=== PATIENT | male | born 1950 | race African-American/Black ===

== ENCOUNTER 2016-11-05 07:46 | Emergency (ER) | payer OTHER, MEDICAID ==
[2016-11-05 09:09] LABS: ABSOLUTE BASOPHILS # (AUTO) 0.1 10^3/uL (0.0-0.2); ABSOLUTE EOSINOPHILS # (AUTO) 0.1 10^3/uL (0.0-0.6); ABSOLUTE LYMPHOCYTES (AUTO) 2.1 10^3/uL (0.5-4.7); ABSOLUTE MONOCYTES (AUTO) 0.6 10^3/uL (0.1-1.4); ABSOLUTE NEUT (AUTO) 3.6 10^3/uL (1.7-8.2); EOSINOPHILS % (AUTO) 2.2 % (0-6); HEMATOCRIT 46.2 % (37.9-51.0); HEMOGLOBIN 15.6 g/dL (13.5-17.0); HGB HCT DIFFERENCE 0.6; LYMPHOCYTES % (AUTO) 32.5 % (13-45); MEAN CORPUSCULAR HGB CONC 33.8 g/dL (32.0-36.0); MEAN CORPUSCULAR VOLUME 98 fl (80-97); MONOCYTES % (AUTO) 8.8 % (3-13); RED BLOOD COUNT 4.74 10^6/uL (4.35-5.55); RED CELL DISTRIBUTION WIDTH 14.8 % (11.5-14.0); SEGMENTED NEUTROPHILS % (AUTO) 55.5 % (42-78); WHITE BLOOD COUNT 6.5 10^3/uL (4.0-10.5)
--- NOTE | 2016-11-05 09:24 | ER Document Report ---
ED Cardiac - General Mode of Arrival: Ambulatory Information source: Patient - HPI Patient complains to provider of: Chest pain. denies: Shortness of breath Chest pain location: Substernal Quality of pain: Dull, Pressure Chest pain precipitating factors: Physical Exertion - walking Cardiac risk factors: Hypertension Positive cardiac history: No Associated symptoms: Other - see notes above <HAL CADE - Last Filed: 11/05/16 10:54> <MASON HOLMAN - Last Filed: 11/05/16 13:57> - General Chief Complaint: Chest Pain Stated Complaint: CHEST PAIN Time Seen by Provider: 11/05/16 09:15 Notes: 65 year old male with history of hypertension and CVA (1 year ago) presents to the ED complaining of substernal chest pain which he describes as dull and pressure that started at 10:00 yesterday morning while outside walking. Patient reports that it was hot outside and he began to have hot flashes associated with the pain. The patient went home to rest, but the pain and hot flashes returned at 1600. The same episode occurred at 0200 and 0500 earlier this morning. Patient denies any shortness of breath, headache, blurry or double vision. Patient states that he feels normal now and denies any pain. Patient reports that he has not taken his hypertensive medications this morning. PCP: None (HAL CADE) - Related Data Allergies/Adverse Reactions: No Known Allergies Allergy (Unverified 12/11/13 14:55) Past Medical History - General Information source: Patient - Social History Smoking Status: Unknown if Ever Smoked Family History: Reviewed & Not Pertinent - Past Medical History Cardiac Medical History: Reports: Hx Hypertension Neurological Medical History: Reports: Hx Cerebrovascular Accident - 2016, Hx Seizures - pediatric Renal/ Medical History: Denies: Hx Peritoneal Dialysis Psychiatric Medical History: Denies: Hx Depression Surgical Hx: Negative - Immunizations Hx Diphtheria, Pertussis, Tetanus Vaccination: No <HAL CADE - Last Filed: 11/05/16 10:54> Review of Systems - Review of Systems Constitutional: See HPI, Other - 'hot flash' EENT: No symptoms reported. denies: Blurred vision, Double vision Cardiovascular: See HPI, Chest pain Respiratory: No symptoms reported. denies: Short of breath Gastrointestinal: No symptoms reported Genitourinary: No symptoms reported Male Genitourinary: No symptoms reported Musculoskeletal: No symptoms reported Skin: No symptoms reported Hematologic/Lymphatic: No symptoms reported Neurological/Psychological: No symptoms reported. denies: Headaches -: Yes All other systems reviewed and negative <CADEHAL - Last Filed: 11/05/16 10:54> Physical Exam - General General appearance: Alert In distress: None - HEENT Head: Normocephalic, Atraumatic Eyes: Normal Extraocular movements intact: Yes Pupils: PERRL - Respiratory Respiratory status: No respiratory distress Breath sounds: Normal - Cardiovascular Rhythm: Regular Heart sounds: Normal auscultation - Abdominal Inspection: Normal Distension: No distension Tenderness: Nontender - Back Back: Normal - Extremities General upper extremity: Normal inspection, Normal ROM General lower extremity: Normal inspection, Normal ROM - Neurological Neuro grossly intact: Yes Cognition: Normal Orientation: AAOx4 Mitali Coma Scale Eye Opening: Spontaneous [place] Coma Scale Verbal: Oriented [place] Coma Scale Motor: Obeys Commands Mitali Coma Scale Total: 15 Speech: Normal - Psychological Associated symptoms: Normal affect, Normal mood - Skin Skin Temperature: Warm Skin Moisture: Dry Skin Color: Normal <CADEHAL - Last Filed: 11/05/16 10:54> Course - Laboratory Result Diagrams: 11/05/16 08:50 11/05/16 08:50 <HAL CADE - Last Filed: 11/05/16 10:54> - Laboratory Result Diagrams: 11/05/16 08:50 11/05/16 08:50 <MASON HOLMAN - Last Filed: 11/05/16 13:57> - Re-evaluation Re-evalutation: 11/05/16 10:34 Patient with separate chest pain events. He describes it as substernal in nature with shortness of breath and exertion. He said they lasted 3-4 minutes and recurred again last evening. He said he got hot flashes felt short of breath again when I went to bed and woke up around 2 or 3:00 this morning with the same type of symptoms got hot flashes short of breath substernal pressure lasted a few minutes went to bed and came in for evaluation today. He denies any cardiac history no history of recent travel surgery immobilization DVT or pulmonary emboli no cough upper respiratory illness shortness of breath history DVT numbness tingling weakness or loss of bladder or bladder function. No fevers chills diarrhea abdominal pain. He denies ever having a heart attack or heart catheterization or stress test. On examination he is chest pain-free hemodynamically stable with a normal examination. EKG shows some nonspecific ST changes but no acute NH. Initial troponin is negative he is given aspirin cardiac enzymes are negative long discussion with the patient and and the daughter at the bedside and I think he needs to be admitted to the hospital despite trying to explain to him that I think he needs to be admitted to the hospital he understands the risks versus benefits that I discussed with him and despite that wants to sign out AGAINST MEDICAL ADVICE. He has a GCS of 15 is awake alert not under the influence of anything that alters his decision to make decisions. Also discussed with the who does not want him to leave. At this time he understands that leaving could lead to or permanent disability and signed the AGAINST MEDICAL ADVICE form. He is instructed to return at any given moment that he wants to return to be reevaluated and discuss other reasons for ED return sooner (MASON HOLMAN) - Vital Signs Vital signs: Temp Pulse Resp BP Pulse Ox 97.8 F 54 L 13 175/97 H 98 11/05/16 07:58 11/05/16 10:50 11/05/16 10:50 11/05/16 10:50 11/05/16 10:50 - Laboratory Laboratory results interpreted by me: 11/05/16 11/05/16 08:50 08:50 MCV 98 H RDW 14.8 H Chloride 110 H Discharge <HAL CADE - Last Filed: 11/05/16 10:54> <MASON HOLMAN - Last Filed: 11/05/16 13:57> - Discharge Clinical Impression: Left against medical advice Chest pain Qualifiers: Chest pain type: unspecified Qualified Code(s): R07.9 - Chest pain, unspecified Condition: Stable Disposition: HOME, SELF-CARE Instructions: Chest Pain of Unclear Cause ([facility]) Additional Instructions: chest pain signed out against medical advice You should call your physician immediately for an appointment or return to ed and allow us to admit you to the hospital. return if the pain radiates to the shoulder, jaw or arms; if you start to run a fever or develop a cough; or if you develop shortness of breath, or other new or alarming symptoms. Referrals: [facility] [Provider Group] (follow up today return to er sooner for increasing worsening or new symptoms) Scribe Attestation: 11/05/16 10:38 I personally performed the services described in the documentation reviewed the documentation recorded by my scribe in my presence and it accurately and completely records my words and actions (MASON HOLMAN) Scribe Documentation - Scribe Written by Scribe:: Gurpreet Velez, 11/05/2016 1101 acting as scribe for :: Andrea <HAL CADE - Last Filed: 11/05/16 10:54>
[2016-11-05 09:27] LABS: ANION GAP 9 (5-19); BLOOD UREA NITROGEN 16 mg/dL (7-20); CALCIUM 9.6 mg/dL (8.4-10.2); CARBON DIOXIDE 25 mmol/L (22-30); CHLORIDE 110 mmol/L (98-107); CREATININE RESULT 0.96 mg/dL (0.52-1.25); GLUCOSE 89 mg/dL (75-110); POTASSIUM 3.9 mmol/L (3.6-5.0); SODIUM 144.4 mmol/L (137-145)
--- NOTE | 2016-11-05 09:30 | RADIOLOGY REPORT (SQ) ---
EXAM DESCRIPTION: CHEST SINGLE VIEW COMPLETED DATE/TIME: 11/05/2016 9:10 am REASON FOR STUDY: chest pain COMPARISON: 12/11/2013 EXAM PARAMETERS: NUMBER OF VIEWS: One view. TECHNIQUE: Single frontal radiographic view of the chest acquired. RADIATION DOSE: NA LIMITATIONS: None. FINDINGS: LUNGS AND PLEURA: No opacities, masses or pneumothorax. No pleural effusion. MEDIASTINUM AND HILAR STRUCTURES: No masses. Contour normal. HEART AND VASCULAR STRUCTURES: Heart normal in size. Normal vasculature. BONES: No acute findings. HARDWARE: None in the chest. OTHER: No other significant finding. IMPRESSION: NO ACUTE RADIOGRAPHIC FINDING IN THE CHEST. TECHNICAL DOCUMENTATION: JOB ID: [id number]
[2016-11-05 09:39] LABS: TROPONIN I 0.015 ng/mL
[2016-11-05] MEDS ORDERED: ASPIRIN 325 MG TABLET PO ONE (10:23)
[2016-11-05 11:09] VITALS: BP 175/97
--- NOTE | 2016-11-05 21:14 | EKG REPORT ---
SEVERITY:- ABNORMAL ECG - SINUS RHYTHM PROBABLE LEFT VENTRICULAR HYPERTROPHY ANTERIOR ST ELEVATION, PROBABLY DUE TO LVH : Confirmed by: Vijay Garcia 05-Nov-2016 21:13:50
== END 2016-11-05 10:50 | disposition home or self-care (01) ==
LOC: ER 07:46
DX: R07.9 Chest pain, unspecified (principal); I10 Essential (primary) hypertension; Z86.73 Personal history of transient ischemic attack (TIA), and cerebral infarction without residual deficits
CPT/HCPCS: 36415; 71010; 80048; 83880; 84484; 85025; 93005; 93010; 99285

== ENCOUNTER 2017-01-30 18:34 | Emergency (ER) | payer OTHER, MEDICAID ==
[2017-01-30] MEDS ORDERED: NORMAL SALINE 1000 ML 1,000 ML IV PRN (18:56)
[2017-01-30 19:36] LABS: ABSOLUTE LYMPHOCYTES (AUTO) 1.7 10^3/uL (0.5-4.7); ABSOLUTE MONOCYTES (AUTO) 1.2 10^3/uL (0.1-1.4); ABSOLUTE NEUT (AUTO) 12.5 10^3/uL (1.7-8.2); BASOPHILS % (AUTO) 0.3 % (0-2); EOSINOPHILS % (AUTO) 0.1 % (0-6); HEMATOCRIT 57.3 % (37.9-51.0); HEMOGLOBIN 19.5 g/dL (13.5-17.0); HGB HCT DIFFERENCE 1.2; LYMPHOCYTES % (AUTO) 10.9 % (13-45); MEAN CORPUSCULAR HEMOGLOBIN 33.4 pg (27.0-33.4); MEAN CORPUSCULAR HGB CONC 33.9 g/dL (32.0-36.0); MEAN CORPUSCULAR VOLUME 98 fl (80-97); MONOCYTES % (AUTO) 7.6 % (3-13); RED BLOOD COUNT 5.83 10^6/uL (4.35-5.55); SEGMENTED NEUTROPHILS % (AUTO) 81.1 % (42-78); WHITE BLOOD COUNT 15.4 10^3/uL (4.0-10.5)
[2017-01-30 19:53] LABS: ALANINE AMINOTRANSFERASE 27 U/L (21-72); ALKALINE PHOSPHATASE 72 U/L (38-126); ASPARTATE AMINO TRANSFERASE 33 U/L (17-59); BILIRUBIN,DIRECT 0.7 mg/dL (0.0-0.4); BILIRUBIN,TOTAL 1.3 mg/dL (0.2-1.3); BLOOD UREA NITROGEN 30 mg/dL (7-20); CARBON DIOXIDE 16 mmol/L (22-30); CHLORIDE 101 mmol/L (98-107); CREATINE KINASE 377 U/L (55-170); GLUCOSE 128 mg/dL (75-110); MAGNESIUM 2.8 mg/dL (1.6-2.3); POTASSIUM 4.1 mmol/L (3.6-5.0); SODIUM 146.8 mmol/L (137-145)
[2017-01-30 20:26] LABS: TOTAL PROTEIN 10.8 g/dL (6.3-8.2)
[2017-01-30 20:28] LABS: ALBUMIN 6.5 g/dL (3.5-5.0)
[2017-01-30 20:29] LABS: ANION GAP 30 (5-19)
[2017-01-30 20:32] LABS: CALCIUM 12.7 mg/dL (8.4-10.2)
[2017-01-30] MEDS ORDERED: NORMAL SALINE 1000 ML 1,000 ML IV ONE (20:53)
--- NOTE | 2017-01-30 21:31 | ER Document Report ---
ED General - General Chief Complaint: Vomiting Stated Complaint: MUSCLE CRAMPS Time Seen by Provider: 01/30/17 18:54 Notes: The patient is a 66-year-old male, past medical history hypertension, presents with several hours of diffuse body cramping after he was working outside in the heat all day. He said that he has not drank much water over the past few days and noticed decreased urination. Patient denies chest pain, shortness of breath , nausea, vomiting, abdominal pain, flank pain, fevers, headache, numbness, tingling or drug use. - Related Data Allergies/Adverse Reactions: No Known Allergies Allergy (Unverified 12/11/13 14:55) Past Medical History - General Information source: Patient - Social History Smoking Status: Never Smoker Chew tobacco use (# tins/day): No Frequency of alcohol use: None Drug Abuse: None Family History: Reviewed & Not Pertinent - Past Medical History Cardiac Medical History: Reports: Hx Hypertension Neurological Medical History: Reports: Hx Cerebrovascular Accident - 2016, Hx Seizures - pediatric Renal/ Medical History: Denies: Hx Peritoneal Dialysis Psychiatric Medical History: Denies: Hx Depression - Immunizations Hx Diphtheria, Pertussis, Tetanus Vaccination: No Review of Systems - Review of Systems Notes: REVIEW OF SYSTEMS: CONSTITUTIONAL: -fevers, -chills EENT: -eye pain, -difficulty swallowing, -nasal congestion CARDIOVASCULAR:-chest pain, -syncope. RESPIRATORY: -cough, -SOB GASTROINTESTINAL: -abdominal pain, - nausea, -vomiting, -diarrhea GENITOURINARY: -dysuria, -hematuria MUSCULOSKELETAL: -back pain, -neck pain, +myalgias SKIN: -rash or skin lesions. HEMATOLOGIC: -easy bruising or bleeding. LYMPHATIC: -swollen, enlarged glands. NEUROLOGICAL: -altered mental status or loss of consciousness, -headache, - neurologic symptoms PSYCHIATRIC: -anxiety, -depression. ALL OTHER SYSTEMS REVIEWED AND NEGATIVE. Physical Exam - Vital signs Vitals: Temp Pulse Resp BP Pulse Ox 97.4 F 96 20 156/110 H 97 01/30/17 19:00 01/30/17 19:00 01/30/17 19:00 01/30/17 19:00 01/30/17 19:00 - Notes Notes: PHYSICAL EXAMINATION: GENERAL: Well-appearing, well-nourished and in no acute distress. HEAD: Atraumatic, normocephalic. EYES: Pupils equal round and reactive to light, extraocular movements intact, sclera anicteric, conjunctiva are normal. ENT: nares patent, oropharynx clear without exudates. Moist mucous membranes. NECK: Normal range of motion, supple without lymphadenopathy LUNGS: Breath sounds clear to auscultation bilaterally and equal. No wheezes rales or rhonchi. HEART: Regular rate and rhythm without murmurs ABDOMEN: Soft, nontender, normoactive bowel sounds. No guarding, no rebound. No masses appreciated. EXTREMITIES: Normal range of motion, no pitting or edema. No cyanosis. NEUROLOGICAL: Cranial nerves grossly intact. Normal speech, normal gait. Normal sensory and motor exams. PSYCH: Normal mood, normal affect. SKIN: Warm, Dry, normal turgor, no rashes or lesions noted. Course - Re-evaluation Re-evalutation: Patient appears well and he is completely asymptomatic at this time. He had mild nausea earlier today that resolved. His blood work shows a prerenal azotemia due to acute kidney failure. After 3 L of fluid, patient feels much better. He is completely asymptomatic. His primary care physician is located at the [place] and he said that he will call tomorrow for follow-up appointment. Pt' s creatinine and calcium improved after IVF, but he is instructed that he still must follow[facility] with [facility]. - Vital Signs Vital signs: Temp Pulse Resp BP Pulse Ox 97.4 F 96 20 156/110 H 97 01/30/17 19:00 01/30/17 19:00 01/30/17 19:00 01/30/17 19:00 01/30/17 19:00 - Laboratory Result Diagrams: 01/30/17 22:35 01/30/17 22:35 Laboratory results interpreted by me: 01/30/17 01/30/17 01/30/17 19:10 19:10 22:35 WBC 15.4 H RBC 5.83 H Hgb 19.5 H Hct 57.3 H MCV 98 H RDW 15.0 H Seg Neutrophils % 81.1 H Lymphocytes % 10.9 L Absolute Neutrophils 12.5 H Sodium 146.8 H Carbon Dioxide 16 L 21 L Anion Gap 30 H BUN 30 H 31 H Creatinine 3.10 H 2.42 H Est GFR ( Amer) 25 L 33 L Est GFR (Non-Af Amer) 20 L 27 L Glucose 128 H Calcium 12.7 H* 10.9 H Magnesium 2.8 H Direct Bilirubin 0.7 H Creatine Kinase 377 H Total Protein 10.8 H 8.8 H Albumin 6.5 H 5.2 H 01/30/17 22:35 WBC 13.7 H RBC Hgb 17.3 H D Hct 51.1 H MCV 98 H RDW 14.6 H Seg Neutrophils % 84.1 H Lymphocytes % 9.7 L Absolute Neutrophils 11.6 H Sodium Carbon Dioxide Anion Gap BUN Creatinine Est GFR ( Amer) Est GFR (Non-Af Amer) Glucose Calcium Magnesium Direct Bilirubin Creatine Kinase Total Protein Albumin Discharge - Discharge Clinical Impression: IRVIN (acute kidney injury), Hypercalcemia Condition: Stable Disposition: HOME, SELF-CARE Additional Instructions: Dehydration Dehydration can result from vomiting or diarrhea, fever, or decreased intake of fluids. If severe, hospitalization and intravenous fluids may be required. Most cases are treated at home with fluids by mouth. For the next 24 hours, drink lots of clear fluids. In mild cases, this can be soda pop or sports drinks. For more severe dehydration, the doctor may recommend special fluids such as Pedialyte or Lytren. Try to get three liters ( 3 quarts) of fluid per day. If vomiting occurs, continue to drink the fluids frequently (every 15 to 20 minutes), but in small amounts (one or two ounces). Depending on the type of dehydration, the doctor may prescribe antinausea medicine or potassium replacements. Call the doctor or return for re-examination if you become progressively weak, vomit repeatedly, or have other new symptoms. Forms: Elevated Blood Pressure Referrals: KIKA CADE MD [Primary Care Provider] - Follow up as needed
[2017-01-30 22:45] LABS: ABSOLUTE BASOPHILS # (AUTO) 0.1 10^3/uL (0.0-0.2); ABSOLUTE LYMPHOCYTES (AUTO) 1.3 10^3/uL (0.5-4.7); ABSOLUTE MONOCYTES (AUTO) 0.7 10^3/uL (0.1-1.4); ABSOLUTE NEUT (AUTO) 11.6 10^3/uL (1.7-8.2); EOSINOPHILS % (AUTO) 0.1 % (0-6); HEMATOCRIT 51.1 % (37.9-51.0); HGB HCT DIFFERENCE 0.8; LYMPHOCYTES % (AUTO) 9.7 % (13-45); MEAN CORPUSCULAR HEMOGLOBIN 33.1 pg (27.0-33.4); MEAN CORPUSCULAR HGB CONC 33.9 g/dL (32.0-36.0); MEAN CORPUSCULAR VOLUME 98 fl (80-97); MONOCYTES % (AUTO) 5.1 % (3-13); RED BLOOD COUNT 5.23 10^6/uL (4.35-5.55); RED CELL DISTRIBUTION WIDTH 14.6 % (11.5-14.0); SEGMENTED NEUTROPHILS % (AUTO) 84.1 % (42-78); WHITE BLOOD COUNT 13.7 10^3/uL (4.0-10.5)
[2017-01-30 22:51] LABS: HEMOGLOBIN 17.3 g/dL (13.5-17.0)
[2017-01-30 23:09] LABS: ALANINE AMINOTRANSFERASE 22 U/L (21-72); ALBUMIN 5.2 g/dL (3.5-5.0); ALKALINE PHOSPHATASE 57 U/L (38-126); ANION GAP 18 (5-19); ASPARTATE AMINO TRANSFERASE 30 U/L (17-59); BILIRUBIN,DIRECT 0.4 mg/dL (0.0-0.4); BILIRUBIN,TOTAL 1.1 mg/dL (0.2-1.3); BLOOD UREA NITROGEN 31 mg/dL (7-20); CALCIUM 10.9 mg/dL (8.4-10.2); CARBON DIOXIDE 21 mmol/L (22-30); CHLORIDE 106 mmol/L (98-107); CREATININE RESULT 2.42 mg/dL (0.52-1.25); GLUCOSE 100 mg/dL (75-110); POTASSIUM 4.2 mmol/L (3.6-5.0); SODIUM 144.7 mmol/L (137-145); TOTAL PROTEIN 8.8 g/dL (6.3-8.2)
[2017-01-30 23:35] VITALS: BP 154/88
== END 2017-01-30 23:45 | disposition home or self-care (01) ==
LOC: ER 18:34
DX: N17.9 Acute kidney failure, unspecified (principal); E83.52 Hypercalcemia; M79.1 Myalgia; M62.838 Other muscle spasm; I10 Essential (primary) hypertension
CPT/HCPCS: 99284; 96360; 96361; 36415; 82550; 83735; 85025; 80053; J7030

== ENCOUNTER 2020-04-19 22:14 | Emergency (ER) | payer MEDICARE, MEDICAID ==
[2020-04-19] MEDS ORDERED: DIPH/PERTUSS(ACELL)/TETANUS VAC/PF 0.5 ML SYR (>=10YO) IM ONE (22:50)
[2020-04-19] MEDS ORDERED: LIDOCAINE 1% INJ-PF (10 MG/ML) 30 ML SDV INJ ONE (22:51)
[2020-04-19] MEDS ORDERED: CLONIDINE HCL 0.2 MG TABLET PO ONE (22:53)
[2020-04-19] MEDS ORDERED: CEPHALEXIN 500 MG CAPSULE PO ONE (23:22)
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
[2020-04-19 23:52] VITALS: BP 155/86
--- OUTSIDE RECORDS SUMMARY | 2020-04-21 17:45 | XMS REPORT ---
:1950 Author Organization [facility] Address [facility] [place] [address] [place] [address] Care Team Providers Name Role Phone María BARONE Attending Clinician Unavailable Allergies, Adverse Reactions, Alerts This patient has no known allergies or adverse reactions. Medications Ordered Filled Start Stop Current Ordering Indication Dosage Frequency Signature Comments Components Medication Medication Date Date Medication? Clinician (SIG) Name Name Ciprofloxac 2017-06 Yes Neal Ciprofloxa in HCl - 07-06 María BARONE josé HCl - 500 MG Oral 00:00: 500 MG Tablet 00 Oral Tablet Take bid starting the am the day before the procedure Quantity: 6 Refills: 0 Neal Daniel MD Start : 8Active Amoxicillin 2017-06 Yes Neal Amoxicilli 500 MG Oral 07-06 María BARONE n 500 MG Tablet 00:00: Oral 00 Tablet 1 po tid start day before procedure Quantity: 9 Refills: 0 Neal Daniel MD Start : 8Active diazePAM 10 2017-06 Yes Neal diazePAM MG Oral 07-06 María BARONE 10 MG Oral Tablet 00:00: Tablet 00 Take 1 two hours prior to procedure, may take another 1 one hour prior to procedure if not sedated Quantity: 2 Refills: 0 Neal Daniel MD Start : 8Active Lisinopril Yes Lisinopril 40 MG Oral 8-22 40 MG Oral Tablet 00:00: Tablet 00 Quantity: 30 Refills: 0 Start : 8Active Aspirin EC Yes Aspirin EC 325 MG Oral 5-07 325 MG Tablet 00:00: Oral Delayed 00 Tablet Release Delayed Release TK 1 T PO ONCE A DAY Quantity: 30 Refills: 0 Start : 14-Oct-2017 Active Viagra 100 Yes Viagra 100 MG Oral MG Oral Tablet Tablet Refills: 0 Active Tamsulosin Yes Tamsulosin HCl - 0.4 HCl - 0.4 MG Oral MG Oral Capsule Capsule Refills: 0 Active Problems Condition Condition Condition Status Onset Resolution Last Treatin g Comments Name Details Category Date Date Treatment Clinician Date Elevated Elevated Problem Active prostate prostate specific specific antigen antigen (PSA) (PSA) 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 Encounters Start End Encounter Admission Attending Care Care Encounter Date/Time Date/Time Type Type Clinicians Facility Department ID 2020-03-16 2020-04-04 Appointment CHARLES Daniel [facility] [id number] 13:45:00 14:02:07 ; Neal Daniel MD 2018-08-04 2018-08-04 [id number] 14:45:00 14:45:00 ; Neal Daniel MD 2018-07-09 2018-07-09 Appointment CHARLES Daniel [facility] [id number] 14:45:00 14:45:00 ; Neal Daniel MD 2018-06-13 2018-06-13 Appointment CHARLES Daniel [facility] [id number] 13:45:00 13:45:00 ; Neal Daniel MD 2018-05-06 2018-05-06 Appointment CHARLES Daniel [facility] [id number] 14:00:00 14:00:00 ; Neal Daniel MD Family History Family Member Diagnosis Comments Start Date Stop Date Unspecified Family history of diabetes Multiple Family Members mellitus Social History Smoking Status Start Date Stop Date Smokes tobacco daily (finding) Vital Signs This patient has no known vital signs. Hospital Discharge Instructions NameDatesDetailsInstructions not documented
== END 2020-04-19 23:52 | disposition home or self-care (01) ==
LOC: ER 22:14
PROC: 0JQF0ZZ Repair Left Upper Arm Subcutaneous Tissue and Fascia, Open Approach (ICD-10-PCS; principal; 2020-04-19)
DX: S41.012A Laceration without foreign body of left shoulder, initial encounter (principal); X99.1XXA Assault by knife, initial encounter; F17.200 Nicotine dependence, unspecified, uncomplicated; I10 Essential (primary) hypertension; Z23 Encounter for immunization
CPT/HCPCS: 12034; 99284; 90715; G0008; A9270 ×2; Q2039; J3490; 90471; 90658

== ENCOUNTER 2020-05-13 12:56 | Emergency (ER) | payer MEDICARE, MEDICAID ==
--- NOTE | 2020-05-13 13:34 | ER Document Report ---
ED Suture/Wound Recheck - General Chief Complaint: Suture Removal Stated Complaint: SUTURE REMOVAL Time Seen by Provider: 05/13/20 13:28 Primary Care Provider: KIKA CADE MD [Primary Care Provider] - Follow up as needed Mode of Arrival: Ambulatory Information source: Patient Notes: 69-year-old male presented to ED for suture removal from the left upper arm. He states he was cut on 19 April and was supposed to wait 2 weeks to get his sutures removed. He denies any pain or discomfort to the site. The wound is well-healed. We will remove the sutures. Constitutional: Negative for fever. HENT: Negative for sore throat. Eyes: Negative for visual changes. Cardiovascular: Negative for chest pain. Respiratory: Negative for shortness of breath. Gastrointestinal: Negative for abdominal pain, vomiting or diarrhea. Genitourinary: Negative for dysuria. Musculoskeletal: Negative for back pain. Skin: Sutures to the left upper arm well approximated well-healed will be removed today Neurological: Negative for headaches, weakness or numbness. 10 point ROS negative except as marked above and in HPI. PHYSICAL EXAMINATION: GENERAL: Well-appearing, well-nourished and in no acute distress. HEAD: Atraumatic, normocephalic. EYES: Pupils equal round extraocular movements intact, conjunctiva are normal. ENT: Nares patent NECK: Normal range of motion LUNGS: No respiratory distress Musculoskeletal: Normal range of motion NEUROLOGICAL: Normal speech, normal gait. PSYCH: Normal mood, normal affect. SKIN: Sutures are intact no redness no drainage no signs or symptoms of infection TRAVEL OUTSIDE OF THE [place] IN LAST 30 DAYS: No - HPI Previous ED treatment: Laceration repair Quality of pain: No pain Severity: None Pain Level: Denies Context: Injury Symptoms since procedure: No complaints Exacerbated by: Denies Relieved by: Denies - Related Data Allergies/Adverse Reactions: No Known Allergies Allergy (Verified 04/19/20 22:40) Past Medical History - General Information source: Patient - Social History Smoking Status: Current Every Day Smoker Cigarette use (# per day): Yes - Pack per day Smoking Education Provided: Yes - 3 min Frequency of alcohol use: Heavy - 2Beer a day Drug Abuse: Marijuana Occupation: Retired Lives with: Family Family History: Reviewed & Not Pertinent Patient has suicidal ideation: No Patient has homicidal ideation: No - Past Medical History Cardiac Medical History: Reports: Hx Hypertension Neurological Medical History: Reports: Hx Cerebrovascular Accident - 2016, Hx Seizures - pediatric Renal/ Medical History: Denies: Hx Peritoneal Dialysis Psychiatric Medical History: Denies: Hx Depression - Immunizations Immunizations up to date: Yes Hx Diphtheria, Pertussis, Tetanus Vaccination: Yes - April 19, 2020 History of Pneumococcal Vaccine: No History of Influenza Vaccine for 03/2019 - 08/2019 Season: No Physical Exam - Vital signs Vitals: Temp Pulse Resp BP Pulse Ox 98.0 F 62 22 H 141/90 H 97 05/13/20 13:02 05/13/20 13:02 05/13/20 13:02 05/13/20 13:02 05/13/20 13:02 Course - Vital Signs Vital signs: Temp Pulse Resp BP Pulse Ox 98 F 85 18 142/87 H 99 05/13/20 14:46 05/13/20 14:46 05/13/20 14:46 05/13/20 14:46 05/13/20 14:46 Discharge - Discharge Clinical Impression: Visit for suture removal Condition: Stable Disposition: HOME, SELF-CARE Instructions: Suture Removal Additional Instructions: SOAP CLEANSING: Gently wash the wound daily using a mild soap (like Ivory, Phisoderm, Neutrogena). Use warm water, rubbing gently until all debris, ooze, and crusting have been washed from the wound. Allow to dry briefly (about 10 minutes) after cleaning. Repeat this cleansing at least three times a day for the first two days and then once or twice a day. ANTIBIOTIC OINTMENT PROTECTION: Your wounds are such that dressing them is not practical or optional. After cleansing, you should apply a thin coating of antibiotic ointment (Bacitracin, not Neosporin) to the wounds at least three times daily. This lessens infection risk, and may decrease the amount of scarring. Use a q-tip or dull butter knife, not your finger, to apply this ointment. Any debris or ooze which builds up in the ointment should be gently rubbed off with a sterile gauze pad. Harder crusting may need to be gently scrubbed off with a clean wash cloth with soap and warm water, perhaps applying a warm, w et wash cloth to the wound for ten minutes first. Development of redness, severe itching, or blistering may mean allergy to the ointment. See the doctor. Acetaminophen Acetaminophen may be taken for pain relief or fever control. It's much safer than aspirin, offering a wider range of "safe" dosages. It is safe during . Some brand names are Tylenol, Panadol, Datril, Anacin 3, Tempra, and Liquiprin. Acetaminophen can be repeated every four hours. The following are maximum recommended dosages: WEIGHT Dose Drops Elixir Chewable(80mg) (LBS.) drprs=droppers tsp=teaspoon 6 40 mg .4 ml (1/2) 6-11 80 mg .8 ml (full) 1/2 tsp 1 tab 12-16 120 mg 1 1/2 drprs 3/4 tsp 1 1/2 tabs 17-23 160 mg 2 drprs 1 tsp 2 tabs 24-30 240 mg 3 drprs 1 1/2 tsp 3 tabs 30-35 320 mg 2 tsp 4 tabs 36-41 360 mg 2 1/4 tsp 4 1/2 tabs 42-47 400 mg 2 1/2 tsp 5 tabs 48-53 480 mg 3 tsp 6 tabs 54-59 520 mg 3 1/4 tsp 6 1/2 tabs 60-64 560 mg 3 1/2 tsp 7 tabs 65-70 600 mg 3 3/4 tsp 7 1/2 tabs 71-76 640 mg 4 tsp 8 tabs 77-82 720 mg 4 1/2 tsp 9 tabs 83-88 800 mg 5 tsp 10 tabs >89 pounds or adults 650 mg to 900 mg Acetaminophen can be repeated every four hours. Maximum daily dose not to exceed 4000 mg. These maximum recommended dosages are slightly higher than the dosages written on the product container, but these dosages are very safe and well below the toxic dosage for acetaminophen. FOLLOW-UP CARE: If you have been referred to a physician for follow-up care, call the physicians office for an appointment as you were instructed or within the next two days. If you experience worsening or a significant change in your symptoms, notify the physician immediately or return to the Emergency Department at any time for re-evaluation. Forms: Smoking Cessation Education, Elevated Blood Pressure Referrals: KIKA CADE MD [Primary Care Provider] - Follow up as needed
[2020-05-13 14:49] VITALS: BP 142/87
== END 2020-05-13 14:10 | disposition home or self-care (01) ==
LOC: ER 12:56
DX: S41.112D Laceration without foreign body of left upper arm, subsequent encounter (principal); W45.8XXD Other foreign body or object entering through skin, subsequent encounter; F12.10 Cannabis abuse, uncomplicated; I10 Essential (primary) hypertension; F17.210 Nicotine dependence, cigarettes, uncomplicated; Z71.6 Tobacco abuse counseling
CPT/HCPCS: 99281